=== PATIENT | female | born 1940 | race Two or more races ===

== ENCOUNTER 2022-06-01 16:51 | Inpatient (IN) | payer OTHER ==
[~2022-06-01] VITALS: Ht 152.4 cm; Wt 102.1 kg
[2022-06-02] MEDS ORDERED: JANUVIA50 MG (08:14)
[2022-06-02] MEDS ORDERED: MONTELUKAST SOD10 MG (08:14)
[2022-06-02] MEDS ORDERED: PANTOPRAZOLE SO40 MG (08:14)
[2022-06-02] MEDS ORDERED: BREO ELLIPTA 21 EACH (08:14)
[2022-06-02] MEDS ORDERED: CHLORTHALIDONE50 MG (08:14)
[2022-06-02] MEDS ORDERED: IRBESARTAN300 MG (08:15)
[2022-06-02] MEDS ORDERED: FAMOTIDINE40 MG (08:15)
[2022-06-02] MEDS ORDERED: METOPROLOL SUCC50 MG (08:15)
[2022-06-02] MEDS ORDERED: PREDNISONE10 MG (08:15)
[2022-06-02] MEDS ORDERED: AMLODIPINE BESYL5 MG (08:15)
== END 2022-06-08 23:08 | disposition home or self-care (01) | DRG 445 ==
LOC: SURG 16:51 → MEDJ 16:51 → SURG 18:05
PROVIDERS: ADMIT Internal Medicine; ATTEND Internal Medicine
PROC: BW40ZZZ Ultrasonography of Abdomen (ICD-10-PCS; 2022-06-02)
PROC: 0DB68ZX Excision of Stomach, Via Natural or Artificial Opening Endoscopic, Diagnostic (ICD-10-PCS; principal; 2022-06-04)
PROC: 0DB78ZX Excision of Stomach, Pylorus, Via Natural or Artificial Opening Endoscopic, Diagnostic (ICD-10-PCS; 2022-06-04)
PROC: CF241ZZ Tomographic (Tomo) Nuclear Medicine Imaging of Gallbladder using Technetium 99m (Tc-99m) (ICD-10-PCS; 2022-06-04)
PROC: BB24ZZZ Computerized Tomography (CT Scan) of Bilateral Lungs (ICD-10-PCS; 2022-06-05)
PROC: 3E0F7GC Introduction of Other Therapeutic Substance into Respiratory Tract, Via Natural or Artificial Opening (ICD-10-PCS; 2022-06-05)
DX: K80.00 Calculus of gallbladder with acute cholecystitis without obstruction (principal); N39.0 Urinary tract infection, site not specified; E11.9 Type 2 diabetes mellitus without complications; I10 Essential (primary) hypertension; Z20.822 Contact with and (suspected) exposure to COVID-19; Z79.4 Long term (current) use of insulin

== ENCOUNTER 2022-07-20 12:36 | Inpatient (IN) | payer OTHER ==
[~2022-07-20] VITALS: Ht 152.4 cm; Wt 71.2 kg
[~2022-07-20 12:36] MED LIST: AMLODIPINE BESYL5 MG; BREO ELLIPTA 21 EACH; CHLORTHALIDONE50 MG; FAMOTIDINE40 MG; IRBESARTAN300 MG; JANUVIA50 MG; METOPROLOL SUCC50 MG; MONTELUKAST SOD10 MG; PANTOPRAZOLE SO40 MG; PREDNISONE10 MG
[2022-07-20] MEDS ORDERED: SINGULAIR 5MG5 MG PO (13:09)
--- NOTE | 2022-07-20 13:10 | NUR ---
SE RECIBE FEMINA DE 81 ANOS ALERTA Y ORIENTADA X3 REFERIDA POR DR ROGE MCKENZIE PARA EVALUACION POR MEDICAMENTOS PARA LA DIABETES. SE MIDEN S/V Y SE COLOCA EN JENNIFER DE ESPERA PENDIENTE A EVALUACION MEDICA.
--- NOTE | 2022-07-20 14:44 | NUR ---
SE UBICA PTE EN CAMA #6 POR ORDEN MEDICA. SE ADMINISTRA NSS 0.9% BAJANDO A 80ML/HR. PTE PENDIENTE A ESTUDIO. SALLY: PTE ALERGICA A TODO DERIVADO DE IODO. CAMBIO EN ORDEN DE CT CON CONTRASTE.
--- NOTE | 2022-07-20 15:38 | NUR ---
SE RECIBE FEMINA ALERTA Y ORIENTADA X 3 ESFERAS EN CAMA CON BARANDAS ELEVADAS POR SEGURIDAD. PRESENTANDO BUEN PATRON RESPIRATORIO. RECIBIENDO IV'S 0.9NSS BAJANDO A 80ML/HR AREA KEITH DE EDEMA Y ERITEMA EN BRAZO IZQUIERDA. PENDIENTE CT. SE MANTIENE EN OBSERVACION POR CAMBIOS.
--- NOTE | 2022-07-20 19:20 | NUR ---
SE COORDINA [id number].
== END 2022-07-25 20:25 | disposition home or self-care (01) | DRG 683 ==
LOC: ER 12:36 → MEDI 21:24
PROVIDERS: ADMIT Internal Medicine; ATTEND Internal Medicine
PROC: BW21ZZZ Computerized Tomography (CT Scan) of Abdomen and Pelvis (ICD-10-PCS; principal; 2022-07-20)
DX: N17.8 Other acute kidney failure (principal); N39.0 Urinary tract infection, site not specified; E86.0 Dehydration; E78.5 Hyperlipidemia, unspecified; Z20.822 Contact with and (suspected) exposure to COVID-19; J44.9 Chronic obstructive pulmonary disease, unspecified; E11.22 Type 2 diabetes mellitus with diabetic chronic kidney disease; I12.9 Hypertensive chronic kidney disease with stage 1 through stage 4 chronic kidney disease, or unspecified chronic kidney disease; N18.9 Chronic kidney disease, unspecified

== ENCOUNTER 2024-07-31 12:48 | Emergency (ER) | payer OTHER ==
[~2024-07-31] VITALS: Ht 152.4 cm; Wt 75.7 kg
[~2024-07-31 12:48] MED LIST changes: +SINGULAIR 5MG5 MG PO
[2024-07-31 14:08] LABS: HEMATOCRIT 36.5 % (36.0-45.00); HEMOGLOBIN 12.6 g/dL (12.0-15.00); MEAN CELL VOLUME 96.2 fL (80.00-100.00); MEAN CORPUSCULAR HEMOGLOBIN 33.1 pg (27.00-32.0); MEAN CORPUSCULAR HGB CONC 34.5 g/dl (32.0-36.0); PLATELET COUNT 220 K/uL (150-450); RED CELL DISTRIBUTION WIDTH 13.1 % (11.5-14.5)
[2024-07-31 14:32] LABS: CALCIUM 10.1 mg/dL (8.5-10.1); CREATININE SERUM 1.73 mg/dL (0.55-1.02); GFR 28.13; POTASSIUM 5.46 mEq/L (3.5-5.1)
[2024-07-31 14:39] LABS: URINE APPEARANCE Clear; URINE BILIRRUBIN Negative (NEGATIVE); URINE BLOOD Negative; URINE COLOR Yellow; URINE KETONE Negative (NEGATIVE); URINE LEUKOCYTE Small; URINE NITRATE Negative; URINE PROTEIN Negative (NEGATIVE); URINE UROBILINOGEN 0.2 E.U./dl
[2024-07-31 14:40] LABS: URINE BACTERIA 79.3 uL (0.0-1933); URINE CAST 1.98 uL (0.0-1.40); URINE EPITHELIAL CELLS 9.5 uL (0.0-38.8); URINE RBC 2.2 uL (0.0-20.8); URINE WBC 88.2 uL (0.0-23.2)
[2024-07-31 15:54] LABS: URINE GLUCOSE >=1000 MG/DL (NEGATIVE)
== END 2024-07-31 18:08 | disposition home or self-care (01) ==
LOC: ER 12:49
PROVIDERS: Emergency Medicine
DX: R10.9 Unspecified abdominal pain (principal); Z91.041 Radiographic dye allergy status; Z88.6 Allergy status to analgesic agent; Z91.018 Allergy to other foods
CPT/HCPCS: 36415; 74177; 99284; Q9965

== ENCOUNTER 2024-12-17 11:59 | Emergency (ER) | payer OTHER ==
[~2024-12-17] VITALS: Ht 152.4 cm; Wt 71.2 kg
[2024-12-17] MEDS ORDERED: DICYCLOMINE HCL 20 MG TABLET PO ONE (12:45)
[2024-12-17] MEDS ORDERED: FAMOtidine 10 MG/ML (4ML VIAL) IV ONE (12:45)
[2024-12-17] MEDS ORDERED: FAMOTIDINE/PF 20 MG/2 ML VIAL ONE (12:53)
[2024-12-17] MEDS ORDERED: DICYCLOMINE HCL 10 MG CAPSULE PO ONE (12:53)
[2024-12-17 14:34] LABS: ALBUMIN 3.6 gm/dL (3.4-5.0); BILIRUBIN TOTAL 0.56 mg/dL (0.3-1.2); CALCIUM 10.4 mg/dL (8.5-10.1); GFR 23.74; POTASSIUM 4.86 mEq/L (3.5-5.1); TOTAL PROTEIN 6.6 gm/dL (6.4-8.2)
[2024-12-17 14:40] LABS: HEMATOCRIT 36.1 % (36.0-45.00); HEMOGLOBIN 12.2 g/dL (12.0-15.00); MEAN CELL VOLUME 94.8 fL (80.00-100.00); MEAN CORPUSCULAR HEMOGLOBIN 32.2 pg (27.00-32.0); MEAN CORPUSCULAR HGB CONC 33.9 g/dl (32.0-36.0); PLATELET COUNT 280 K/uL (150-450); RED BLOOD COUNT 3.81 M/uL (4.00-6.00)
[2024-12-17 14:53] LABS: INR 1.03; PARTIAL THROMBOPLASTIN TIME 22.5 SECONDS (22.0-34.0); PROTHROMBIN TIME 11.2 SECONDS (9.0-11.5)
== END 2024-12-17 19:00 | disposition home or self-care (01) ==
LOC: ER 11:59
PROVIDERS: General Practice
DX: R10.13 Epigastric pain (principal); R10.9 Unspecified abdominal pain; I10 Essential (primary) hypertension; E11.9 Type 2 diabetes mellitus without complications; Z88.6 Allergy status to analgesic agent; Z91.011 Allergy to milk products; Z91.013 Allergy to seafood
CPT/HCPCS: 36415; 71045; 74176; 93005; 96365; 99284; J3490

== ENCOUNTER 2025-02-19 05:55 | Day surgery (SDC) | payer OTHER ==
[2025-02-16 10:29] LABS: URINE APPEARANCE Clear; URINE BILIRRUBIN Negative (NEGATIVE); URINE BLOOD Negative; URINE COLOR Yellow; URINE KETONE Negative (NEGATIVE); URINE LEUKOCYTE Negative; URINE NITRATE Negative; URINE PROTEIN Negative (NEGATIVE); URINE UROBILINOGEN 0.2 E.U./dl
[2025-02-16 10:31] LABS: URINE BACTERIA 39.1 uL (0.0-1933); URINE EPITHELIAL CELLS 2.6 uL (0.0-38.8); URINE WBC 3.3 uL (0.0-23.2)
[2025-02-16 10:35] LABS: URINE CAST 0.58 uL (0.0-1.40); URINE RBC 0.2 uL (0.0-20.8)
[2025-02-16 10:36] LABS: URINE GLUCOSE 500 MG/DL (NEGATIVE)
[2025-02-16 10:42] LABS: HEMATOCRIT 37.6 % (36.0-45.00); HEMOGLOBIN 12.7 g/dL (12.0-15.00); MEAN CELL VOLUME 95.7 fL (80.00-100.00); MEAN CORPUSCULAR HEMOGLOBIN 32.5 pg (27.00-32.0); MEAN CORPUSCULAR HGB CONC 33.9 g/dl (32.0-36.0); PLATELET COUNT 265 K/uL (150-450); RED BLOOD COUNT 3.92 M/uL (4.00-6.00); RED CELL DISTRIBUTION WIDTH 14.5 % (11.5-14.5)
[2025-02-16 11:27] LABS: ALBUMIN 3.7 gm/dL (3.4-5.0); BILIRUBIN TOTAL 0.38 mg/dL (0.3-1.2); CALCIUM 10.5 mg/dL (8.5-10.1); CREATININE SERUM 2.21 mg/dL (0.55-1.02); GFR 21.15; GLOBULINA 3.1 G/DL (2.4-3.5); POTASSIUM 5.55 mEq/L (3.5-5.1); TOTAL PROTEIN 6.8 gm/dL (6.4-8.2)
[2025-02-16 11:31] LABS: INR 0.99; PARTIAL THROMBOPLASTIN TIME 22.7 SECONDS (22.0-34.0); PROTHROMBIN TIME 10.8 SECONDS (9.0-11.5)
[2025-02-19] MEDS ORDERED: MORPHINE SULFATE 4 MG/ML VIAL IV ONE ×2 (12:00→12:45)
[2025-02-19] MEDS ORDERED: CEFAZOLIN SODIUM 1,000 MG VIAL IV ONE (14:30)
== END 2025-02-19 15:15 | disposition home or self-care (01) ==
LOC: CIR.AMB 05:55
PROVIDERS: ATTEND Surgery
DX: K80.10 Calculus of gallbladder with chronic cholecystitis without obstruction (principal); Z91.041 Radiographic dye allergy status; Z88.6 Allergy status to analgesic agent